=== PATIENT | male | born 1950 | race Hispanic/Latino ===

== ENCOUNTER 2017-10-10 21:28 | Emergency (ER) | payer OTHER ==
[2017-10-10 22:13] VITALS: BP 179/95
[2017-10-10 22:50] LABS: Hematocrit 47.6 % (35.5-45.6); Hemoglobin 16.2 gm/dl (11.8-15.2); Mean Corpuscular HGB Conc 34 % (32-34); Mean Corpuscular Hemoglobin 32 pg (28-32); Mean Corpuscular Volume 93 fl (84-94); Platelet Count 169 K/mm3 (140-440); Red Blood Count 5.14 M/mm3 (3.65-5.03); Red Cell Distribution Width 13.6 % (13.2-15.2)
[2017-10-10 22:59] LABS: BUN/Creatinine Ratio 13; Blood Urea Nitrogen 16 mg/dL (9-20); Calcium 9.1 mg/dL (8.4-10.2); Hemolysis Index 35
--- NOTE | 2017-10-11 00:33 | XRay Report ---
FINAL REPORT PROCEDURE: XR CHEST ROUTINE 2V TECHNIQUE: PA and lateral chest radiographs were obtained. HISTORY: Chest pain. COMPARISON: No prior studies are available for comparison. FINDINGS: Heart: Normal. Mediastinum/Vessels: Mild aortic tortuosity. Lungs/Pleural space: Mild hyperinflation. Bony thorax: Sternotomy. Mild osteopenia. Multilevel disc space narrowing and osteophytes. Slight wedge compression in the mid thoracic spine. Other: IMPRESSION: Mild aortic tortuosity. No radiographic evidence of acute cardiopulmonary disease. Hyperinflation suggests obstructive physiology.
== END 2017-10-11 01:00 | disposition left against medical advice (07) ==
LOC: ED 21:28
DX: R07.89 Other chest pain (principal); Z53.21 Procedure and treatment not carried out due to patient leaving prior to being seen by health care provider
CPT/HCPCS: 36415; 71046; 80048; 84484; 85025; 93005; 93010